=== PATIENT | male | born 1970 | race Caucasian/White ===

== ENCOUNTER 2019-01-25 13:40 | Inpatient (IN) ==
--- NOTE | 2019-01-25 14:04 | Emergency Department Note ---
Disposition Clinical Impression: Cellulitis and abscess of upper extremity Disposition: Admitted As Inpatient Condition: Fair Time of Disposition: 16:55 General Adult HPI - General Chief complaint: ED Skin/Abscess/Foreign Body Stated complaint: Right Forearm Abscess Time Seen by Provider: 01/25/19 13:51 Source: patient Limitations: no limitations Nursing Notes Reviewed: Yes Vital Signs Reviewed: Yes - History of Present Illness HPI Narrative: 48-year-old male with history of IV drug abuse who presents emergency Department with complaints of right forearm abscess. The patient states that presently 3 weeks ago he used his right forearm injection site to inject heroin. Apparently 5 days ago he began to notice swelling and redness in this area with the development of an abscess. It is progressively been worse. He started using a warm compress last night and has been having mild drainage from the area since that time. He notes that he has had redness and swelling surrounding the area which is been progressively worsening. He denies any fever, chills, chest pain, shortness of breath, nausea or vomiting. Most recent use of this injection site was 3 weeks ago and he otherwise smoked methamphetamines yesterday. He is currently in the process of getting set up with a Suboxone treatment program and is here with his sponsor today. He has been taking a friend's amoxicillin since yesterday. Pain Scale: 6 - Related Data Home Medications Medication Instructions Recorded Confirmed No Known Home Drugs 01/25/19 01/25/19 Allergies Allergy/AdvReac Type Severity Reaction Status Date / Time hydrocodone Allergy Hives Verified 01/25/19 13:41 Review of Systems: ROS per history of present illness, all other systems reviewed and negative or normal. All systems ED: reviewed and negative except as stated. Review of Systems: As Per HPI Past Medical History - Past Medical History Medical history: Reports: no medical history Psychiatric history: Reports: no psych history - Social History Smoking Status: Current every day smoker Smokeless Tobacco Status: No Alcohol use: Reports: none Drug use: Reports: IV Drug Use Physical Exam General: Conversant. No apparent distress. Follow commands. Appears stated age. Neck: No JVD. Trachea midline. Neck supple. Eyes: PERRL. No scleral icterus. HENT: Normocephalic and atraumatic. Moist mucus membranes. Cardiovascular: Regular rate and rhythm. Normal S1 and S2. No murmurs appreciated. Normal capillary refill. Extremities well perfused with 2+ distal pulses bilaterally. No edema. Pulmonary: Normal and equal breath sounds bilaterally, anteriorly and posteriorly. No wheezes, rales, or rhonchi. Not in respiratory distress. Speaks in full sentences. Abdomen: Soft, nondistended, and tontender. No bruits or masses. No guarding. Neuro: Alert and oriented x3. No slurred speech. No focal deficits noted. Skin: Overlying the right anterior forearm slightly medially there is a approximately 2 cm x 2 cm raised abscess with central area of fluctuance. There is significant soft tissue induration and swelling surrounding the area extending into the medial elbow. There is no lymphadenopathy in the axilla. Patient denies any decreased sensation. He has full range of motion of his elbow in flexion, extension, supination and pronation. Distal pulses 2+. Musculoskeletal: No bony abnormalities visualized. Moves all extremities. Psych: Normal mood. Pleasant. Makes appropriate eye contact. - General Limitations: no limitations General appearance: alert, in no apparent distress Course Vital Signs Temperature 97.7 F 01/25/19 13:42 Pulse Rate 103 01/25/19 13:42 Respiratory Rate 16 01/25/19 13:42 Blood Pressure 132/85 01/25/19 13:42 O2 Sat by Pulse Oximetry 96 01/25/19 13:42 Temperature 98.7 F 01/25/19 18:36 Pulse Rate 69 01/25/19 18:36 Respiratory Rate 14 01/25/19 18:36 Blood Pressure 117/73 01/25/19 18:36 O2 Sat by Pulse Oximetry 98 01/25/19 18:36 Oxygen Delivery Oxygen Delivery Room Air Procedures - Abscess I/D Consent obtained: verbal consent Site: upper extremity (anterior forearm, [id number]) Side (if applicable): right Sedation/analgesia: none Local Anesthetic: lidocaine 1% Amount of Anesthesia Used (mL): 5 Technique: incised with #11 blade Irrigation: Yes Packing used?: none Complications: pain Medical Decision Making - MDM Narrative Medical decision making narrative: 48-year-old male who presents emergency Department with complete of right forearm abscess. The patient is an IV drug user. He notices been ongoing for approximately 5 days. The patient does have significant abscess with cellulitic changes surrounding and streaking along the right medial upper extremity. Given the patient's IV drug abuse and significant cellulitis we did perform an I&D of the abscess with significant return of purulent material. He was also started on IV antibiotics, vancomycin and Zosyn. Labs show no significant leukocytosis. BMP shows no significant electrolyte abnormalities. Lactate not significantly elevated. Blood cultures were drawn. Given a cellulitic changes and potential for worsening infection patient will require IV antibiotics and admission. Discussed case with on-call hospitalist Dr. Bee who agrees with plan for admission and accepts the patient to the inpatient service. He did request a CT scan of the right upper extremity which was performed. This shows no evidence of gas within the soft tissues. Patient agrees with and understands course of treatment plan including plan for admission. All questions answered. - Medical Records Medical records reviewed: Yes I reviewed the patient's medical records. - Lab Data Lab results reviewed: Yes I reviewed the patient's lab results. Result diagrams: 01/25/19 16:23 01/25/19 16:23 Lab Results 01/25/19 01/25/19 01/25/19 Range/Units 16:23 16:23 16:23 WBC 10.5 (4.3-11.1) K/mcL RBC 5.10 (4.19-5.50) M/mcL Hgb 16.3 (12.9-16.9) g/dL Hct 46.7 (37.5-50.1) % MCV 91.6 (83.0-100.0) fL MCH 32.0 (28.0-33.3) pg MCHC 34.9 (31.6-35.5) g/dL RDW 11.7 (11.5-14.5) % Plt Count 162 (140-400) K/mcL MPV 10.9 (9.4-12.4) fL Immature Gran % 0.3 (0-4) % Seg Neutrophils % 64.6 % Lymphocytes % 26.7 % Monocytes % 7.5 % Eosinophils % 0.5 % Basophils % 0.4 % Neutrophils # 6.8 (1.6-8.9) K/mcL Lymphocytes # 2.8 (0.6-4.6) K/mcL Monocytes # 0.8 (0.0-1.3) K/mcL Eosinophils # 0.1 (0.0-0.6) K/mcL Basophils # 0.0 (0.0-0.2) K/mcL Sodium 132 L (136-145) mEq/L Potassium 3.9 (3.5-5.1) mEq/L Chloride 100 (98-107) mEq/L Carbon Dioxide 26 (23-29) mEq/L BUN 11 (6-20) mg/dL Creatinine 0.93 (0.70-1.30) mg/dL Est GFR ( Amer) > 60 (> 60) Est GFR (Non-Af Amer) > 60 (> 60) BUN/Creatinine Ratio 12 (6-26) Glucose 99 (70-105) mg/dL Calculated Osmolality 273 L (280-300) Lactic Acid 0.8 (0.5-2.2) mmol/L Calcium 9.5 (8.6-10.3) mg/dL - Radiology Data Radiology results reviewed: Yes I reviewed the patient's radiology results. Upper Extremity CT 01/25/19 16:55 IMPRESSION: Focal soft tissue ulceration along the antecubital fossa. There is a small amount of subjacent fluid, but a well-defined rim enhancing abscess is not detected. Subcutaneous edema is found tracking both proximally and distal to that, most compatible with cellulitis. No soft tissue gas is detected. Note, however, that in the absence of soft tissue gas, no imaging modality can exclude necrotizing fasciitis. No CT evidence of osteomyelitis. D/ / Chris Heller MD / Chris Heller MD Interpreting Provider: Chris Heller MD
[2019-01-25] MEDS ORDERED: Lidocaine 1% 20 ML MDV INFILT ONE (14:51)
[2019-01-25] MEDS ORDERED: 0.9 % Sodium Chloride 1,000 ML IVC STA (16:06)
[2019-01-25] MEDS ORDERED: Piperacillin/Tazobactam 3.375 GM in Water for inj. (sterile) 20 ML 20 ML IVP ONE (16:07)
[2019-01-25] MEDS ORDERED: *HR* FentaNYL (PF) 100 MCG/2 ML VIAL IVP STA (16:16)
[2019-01-25] MEDS ORDERED: Nicotine 21 MG PATCH.TD24 TD ONE (16:16)
[2019-01-25 16:39] LABS: Basophils % 0.4 %; Eosinophils # 0.1 K/mcL (0.0-0.6); Eosinophils % 0.5 %; Hematocrit 46.7 % (37.5-50.1); Hemoglobin 16.3 g/dL (12.9-16.9); Immature Granulocytes % 0.3 % (0-4); Lymphocytes # 2.8 K/mcL (0.6-4.6); Lymphocytes % 26.7 %; Mean Corpuscular HGB Conc 34.9 g/dL (31.6-35.5); Mean Corpuscular Volume 91.6 fL (83.0-100.0); Mean Platelet Volume 10.9 fL (9.4-12.4); Monocytes # 0.8 K/mcL (0.0-1.3); Monocytes % 7.5 %; Neutrophils # 6.8 K/mcL (1.6-8.9); Platelet Count 162 K/mcL (140-400); Red Cell Distribution Width 11.7 % (11.5-14.5); Segmented Neutrophils % 64.6 %; White Blood Count 10.5 K/mcL (4.3-11.1)
[2019-01-25] MEDS: Ketorolac 15 MG/ML VIAL IVP ONE ×2 (16:45)
[2019-01-25 16:55] LABS: BUN/Creatinine Ratio 12 (6-26); Blood Urea Nitrogen 11 mg/dL (6-20); Calcium 9.5 mg/dL (8.6-10.3); Carbon Dioxide 26 mEq/L (23-29); Chloride 100 mEq/L (98-107); Glucose 99 mg/dL (70-105); Osmolality,Calculated 273 (280-300); Potassium 3.9 mEq/L (3.5-5.1); Sodium 132 mEq/L (136-145); eGFR For African Americans > 60 (> 60); eGFR For Non-African Americans > 60 (> 60)
[2019-01-25] MEDS ORDERED: Isovue-370 500 ML BOTTLE IVP ONE (16:55)
[2019-01-25] MEDS ORDERED: Naloxone 0.4 MG/ML INJ IVP PRN (17:05)
[2019-01-25] MEDS ORDERED: Ondansetron 4 MG/2 ML VIAL IVP PRN (17:05)
[2019-01-25] MEDS ORDERED: Acetaminophen 325 MG TABLET PO PRN (17:05)
[2019-01-25] MEDS ORDERED: MOM Conc 10 ML UD.LIQ PO PRN (17:05)
--- NOTE | 2019-01-25 18:04 | Internal Med History&Physical ---
Date of Encounter: 01/25/19 Time of Encounter: 18:03 Internal Medicine - H&P: HPI Chief complaint: Right forearm cellulitis History of present illness: 48-year-old male with history of IV drug abuse , he reported heroin, methamphetamine, and Xanax abuse. The patient presented to the emergency room with right forearm erythema and tenderness, purulent drainage and possible abscess formation. The patient stated that he has been taking oral antibiotics that he got from his friends starting yesterday morning. The patient stated that he started noticing symptoms about 5 days ago and it has been progressively worsening. The patient denying fever, chills, nausea, vomiting, shortness of breath, paroxysmal nocturnal dyspnea, palpitation, orthopnea and progressive worsening of lower extremity edema. The patient is accompanied by his sponsor in the room who stated that the patient is scheduled to start his Suboxone treatment program on Sunday. Patient was evaluated by the ER staff and incision and drainage was performed by them, CAT scan of the right upper ext remity was ordered and is pending. Patient was admitted for further evaluation and management including IV antibiotics. Past Med Surg Social Fam HX - Past Medical History Medical history: no medical history Psychiatric history: no psych history - Social History Smoking Status: Current every day smoker Smokeless Tobacco Status: No Alcohol use: none Drug use: IV Drug Use Internal Medicine - H&P: Meds No Known Home Drugs 01/25/19 [History] Allergy/AdvReac Type Severity Reaction Status Date / Time hydrocodone Allergy Hives Verified 01/25/19 13:41 All Systems PM: A 10-system review of systems was performed and is negative for pertinent findings except as documented above in the HPI. - Constitutional Vitals: Temp Pulse Resp BP Pulse Ox 97.7 F 75 18 134/90 98 01/25/19 13:42 01/25/19 17:47 01/25/19 17:47 01/25/19 17:47 01/25/19 17:47 General appearance: Present: A&O X 3 Exam: ` - Head Head exam: Present: atraumatic, normocephalic - Neck Neck exam general surgery: Present: supple, trachea midline. Absent: lymphadenopathy - Respiratory Respiratory exam: Present: CTAB. Absent: accessory muscle use, rales, rhonchi, wheezes - Cardiovascular Cardiovascular exam: Present: RRR, +S1, +S2. Absent: diastolic murmur, gallop, rubs, systolic murmur - Extremities Exam Extremities exam: Present: warm, radial pulses palpable and symmetrical. Absent: calf tenderness, cyanotic, pedal edema Additional comments: soft tissue induration and swelling surrounding the recently drained 2cm x 2cm abscess. Erythema and tenderness over the medial surface of the right forearm. Internal Med - H&P Results - Labs CBC & Chem 7: 01/26/19 03:22 01/26/19 03:22 Labs: Short CBC 01/25/19 Range/Units 16:23 WBC 10.5 (4.3-11.1) K/mcL Hgb 16.3 (12.9-16.9) g/dL Hct 46.7 (37.5-50.1) % Plt Count 162 (140-400) K/mcL Neutrophils # 6.8 (1.6-8.9) K/mcL BMP 01/25/19 16:23 Sodium 132 L Potassium 3.9 Chloride 100 Carbon Dioxide 26 BUN 11 Creatinine 0.93 Glucose 99 Calcium 9.5 - Assessment and Plan (1) Cellulitis and abscess of upper extremity Current Visit: Yes Status: Acute Assessment and plan: Blood culture obtained. The patient was started is on empiric antibiotic with vancomycin and Zosyn. The patient status post I and D by the ER staff, CT scan of the right forearm was ordered and pending. (2) Polysubstance abuse Current Visit: Yes Status: Acute Assessment and plan: The patient is accompanied by his sponsor in the room who stated that the patient is scheduled to start his Suboxone treatment program on Sunday. The patient reported history of heroin, methamphetamine and Xanax abuse. - Time Spent With Patient Total time spent is greater than 50% in coordination of care (as documented) at patient's floor/unit and/or counseling patient:
[2019-01-25] MEDS: 0.9 % Sodium Chloride 1,000 ML IVC SCH (20:25)
[2019-01-25] MEDS: traMADol 50 MG TABLET PO PRN (20:25)
[2019-01-25] MEDS: *HR* Heparin 5,000 UNIT/ML VIAL SQ SCH (23:52)
[2019-01-25] MEDS: Piperacillin/Tazobactam 3.375 GM in 0.9 % Sodium Chloride Mini Bag 100 ML IVPB SCH (23:53)
[2019-01-26 04:29] LABS: Mean Corpuscular Hemoglobin 31.1 pg (28.0-33.3); Mean Corpuscular Volume 91.7 fL (83.0-100.0); Mean Platelet Volume 10.8 fL (9.4-12.4); Platelet Count 171 K/mcL (140-400); Red Blood Count 4.69 M/mcL (4.19-5.50); Red Cell Distribution Width 11.9 % (11.5-14.5); White Blood Count 7.8 K/mcL (4.3-11.1)
[2019-01-26 04:33] LABS: Hemoglobin 14.6 g/dL (12.9-16.9)
[2019-01-26 04:46] LABS: BUN/Creatinine Ratio 13 (6-26); Blood Urea Nitrogen 11 mg/dL (6-20); Calcium 8.6 mg/dL (8.6-10.3); Carbon Dioxide 25 mEq/L (23-29); Chloride 105 mEq/L (98-107); Glucose 97 mg/dL (70-105); Osmolality,Calculated 283 (280-300); Potassium 3.8 mEq/L (3.5-5.1); Sodium 137 mEq/L (136-145); eGFR For African Americans > 60 (> 60); eGFR For Non-African Americans > 60 (> 60)
[2019-01-26] MEDS ORDERED: *HR* Buprenorphine HCl 2 MG SUBLINGUAL TABLET SL ONE (09:39)
[2019-01-26] MEDS: Piperacillin/Tazobactam 3.375 GM in 0.9 % Sodium Chloride Mini Bag 100 ML IVPB SCH ×2 (10:46→16:19)
[2019-01-26] MEDS: *HR* Heparin 5,000 UNIT/ML VIAL SQ SCH ×2 (10:50→16:21)
[2019-01-26] MEDS: 0.9 % Sodium Chloride 1,000 ML IVC SCH (11:00)
--- NOTE | 2019-01-26 11:14 | Internal Med Progress Note ---
Hospitalist Progress Note - Encounter Date of Encounter: 01/26/19 Time of Encounter: 09:30 - Subjective Interval History: H&P reviewed. Patient with history of IV drug abuse was admitted for right antecubital fossa abscess and cellulitis. Underwent I&D in the ED but pus was not sent for cultures. REports mild improvement in pain but continues to have s ignificant erythema and tenderness both proximally and distally to the abscess. No fever overnight. - Exam Vitals: Temp Pulse Resp BP Pulse Ox 98.1 F 59 15 116/73 100 01/26/19 06:42 01/26/19 06:42 01/26/19 06:42 01/26/19 06:42 01/26/19 06:42 Exam: General: Alert and oriented, not in acute distress. Cardiovascular:Normal S1 & S2, No JVD. Pulse regular. Lungs: clear to auscultation, no wheezes/rales Abdomen:Soft, non-tender, no rigidity. Extremities: R antecubital fossa wound with purulent discharge. Erythema and tenderness both proximally and distally to the wound but receding according to the patient. Neurological:Normal cognition and motor skills. Non-focal - Assessment and Plan (1) Cellulitis and abscess of upper extremity Current Visit: Yes Status: Acute Assessment and Plan: underwent I&D in the ED, no culture taken continues to have mild purulent discharge from the wound, will send for culture started on IV vanc/zosyn, continue wound care (2) Polysubstance abuse Current Visit: Yes Status: Chronic Assessment and Plan: counseling provided is enrolled in Suboxone treatment program starting from Sunday Will administer Subutex if he manifests any signs of withdrawal DVT Prophylaxis: SQ heparin - Time Spent with Patient Total time spent is greater than 50% in coordination of care (as documented) at patient's floor/unit and/or counseling patient: 25 - 35 minutes Plan of Care Discussed with: patient (discussed with RN and also with pharmacist regarding Subutex) Internal Medicine: Result - Labs CBC & Chem 7: 01/26/19 03:22 01/26/19 03:22 Labs: Short CBC 01/25/19 01/26/19 Range/Units 16:23 03:22 WBC 10.5 7.8 (4.3-11.1) K/mcL Hgb 16.3 14.6 D (12.9-16.9) g/dL Hct 46.7 43.0 (37.5-50.1) % Plt Count 162 171 (140-400) K/mcL Neutrophils # 6.8 (1.6-8.9) K/mcL BMP 01/25/19 01/26/19 16:23 03:22 Sodium 132 L 137 Potassium 3.9 3.8 Chloride 100 105 Carbon Dioxide 26 25 BUN 11 11 Creatinine 0.93 0.85 Glucose 99 97 Calcium 9.5 8.6 - Impressions Impressions Upper Extremity CT 01/25/19 16:55 IMPRESSION: Focal soft tissue ulceration along the antecubital fossa. There is a small amount of subjacent fluid, but a well-defined rim enhancing abscess is not detected. Subcutaneous edema is found tracking both proximally and distal to that, most compatible with cellulitis. No soft tissue gas is detected. Note, however, that in the absence of soft tissue gas, no imaging modality can exclude necrotizing fasciitis. No CT evidence of osteomyelitis. D/ / Chris Heller MD / Chris Heller MD Interpreting Provider: Chris Heller MD Consult Discharge Plan - Plan Referrals: NONE,PCP [Primary Care Provider] -
[2019-01-26] MEDS: Nicotine 21 MG PATCH.TD24 TD SCH (13:19)
[2019-01-26] MEDS ORDERED: Nicotine 21 MG PATCH.TD24 TD ONE (16:16)
[2019-01-26] MEDS: traMADol 50 MG TABLET PO PRN (16:38)
[2019-01-27] MEDS: Piperacillin/Tazobactam 3.375 GM in 0.9 % Sodium Chloride Mini Bag 100 ML IVPB SCH ×3 (00:38→15:29)
[2019-01-27] MEDS: *HR* Heparin 5,000 UNIT/ML VIAL SQ SCH ×3 (00:42→15:29)
[2019-01-27 05:27] LABS: BUN/Creatinine Ratio 11 (6-26); Blood Urea Nitrogen 10 mg/dL (6-20); Calcium 8.8 mg/dL (8.6-10.3); Carbon Dioxide 24 mEq/L (23-29); Chloride 105 mEq/L (98-107); Glucose 99 mg/dL (70-105); Osmolality,Calculated 285 (280-300); Potassium 4.5 mEq/L (3.5-5.1); Sodium 138 mEq/L (136-145); eGFR For African Americans > 60 (> 60); eGFR For Non-African Americans > 60 (> 60)
[2019-01-27 06:52] VITALS: BP 94/57
[2019-01-27 07:27] LABS: Hemoglobin 14.1 g/dL (12.9-16.9); Mean Corpuscular HGB Conc 34.4 g/dL (31.6-35.5); Mean Corpuscular Hemoglobin 31.8 pg (28.0-33.3); Mean Corpuscular Volume 92.6 fL (83.0-100.0); Mean Platelet Volume 10.5 fL (9.4-12.4); Platelet Count 176 K/mcL (140-400); Red Blood Count 4.43 M/mcL (4.19-5.50); White Blood Count 6.8 K/mcL (4.3-11.1)
[2019-01-27] MEDS: Nicotine 21 MG PATCH.TD24 TD SCH (08:08)
[2019-01-27] MEDS: traMADol 50 MG TABLET PO PRN (08:08)
--- NOTE | 2019-01-27 09:33 | Discharge Summary ---
- NOTES TO OUTPATIENT PROVIDER Notes to Outpatient Provider: Follow-up with PCP as an outpatient. Follow up in Suboxone clinic tomorrow Orders not resulted at time of discharge: Pending orders 01/25/19 16:36 Culture,Blood [BC] Stat 01/26/19 Culture,Wound [RM] Routine Date of Encounter: 01/27/19 Time of Encounter: 07:30 - Discharge Diagnosis (1) Cellulitis and abscess of upper extremity Priority: Primary Status: Acute (2) Polysubstance abuse Priority: Secondary Status: Chronic Hospital course: Mr. Quintanilla is a 48 year old male with history of IV drug abuse was admitted for right antecubital fossa abscess/cellulitis. I&D done in the ED, culture -ve to date, and clinically improved on IV VAnc/zosyn for 3 days. He will be discharged on 7 additional days of PO Augmentin and PCP follow up. He states that he is enrolled in Suboxone clinic starting from 01/28. Discharge discussed with: patient, nurse - Time Spent with Patient Total time spent providing and/or coordinating discharge services: 28 mins - Discharge Medications Prescriptions: New Amoxicillin/Clavulanate [Augmentin] 875 mg PO BIDWM 7 Days #14 tablet Home Medications: Amoxicillin/Clavulanate [Augmentin] 875 mg PO BIDWM 7 Days #14 tablet 01/27/19 [Rx] Allergies/Adverse Reactions: Allergy/AdvReac Type Severity Reaction Status Date / Time hydrocodone Allergy Hives Verified 01/25/19 13:41 Date of admission: 01/25/19 17:29 Primary care physician: PCP NONE Consults: 01/26/19 11:15 Consult to Wound Care [CONS] Routine Reason for Consult: R antecubital fossa abscess s/p I&D Call Completed: No 01/27/19 08:21 Consult to Soda Column Operator [CONS] Routine Reason for SW Consult: Patient request to talk to tire maintenance technician. Patient is homeless. - Constitutional Vitals: Temp Pulse Resp BP Pulse Ox 97.8 F 58 15 94/57 98 01/27/19 06:51 01/27/19 06:51 01/27/19 06:51 01/27/19 06:51 01/27/19 06:51 General appearance: Present: A&O X 3 Exam: General: Alert and oriented, not in acute distress. Cardiovascular:Normal S1 & S2, No JVD. Pulse regular. Lungs: clear to auscultation, no wheezes/rales Abdomen:Soft, non-tender, no rigidity. Extremities: R antecubital fossa dressing c/d/i Neurological:Normal cognition and motor skills. Non-focal - Patient Status Disposition: Home, Self-Care Condition: Fair Functional capacity at discharge: independent ambulation Overall status at discharge: patient is progressing back to baseline - Discharge Instructions Instructions: Cellulitis (DC) Follow Up With: NONE,PCP [Primary Care Provider] - - Diet and Activity Activity: resume usual activities as tolerated Diet: regular diet
--- NOTE | 2019-01-27 12:56 | Electrocardiograph Report ---
[address] [address] Test Date: 2019-01-26 Pat Name: Vernon Quintanilla Department: 115 Room: 3A37 Gender: M Recep: LYNNE : 1970 Requested By: Teja Jones Order Number: [id number] Reading MD: Ranjit Sparks Measurements Intervals [place] Rate: 62 P: 61 MT: 172 QRS: 6 QRSD: 99 T: 40 QT: 425 QTc: 431 Interpretive Statements SINUS RHYTHM Electronically Signed On 01-27-2019 12:54:58 EDT by Ranjit Sparks
[2019-01-27] MEDS ORDERED: Aminoglycoside Consult 1 EACH MC ONE (19:47)
== END 2019-01-27 19:48 | disposition home or self-care (01) | DRG 364 ==
LOC: 3ANU 13:40 → EMEROOARM 13:40 → SUATTDRO 17:29 → 3ANU 18:00
PROVIDERS: ADMIT Internal Medicine Nephrology; ATTEND Internal Medicine